=== PATIENT | female | born 1990 | race Caucasian/White ===

== ENCOUNTER 2019-07-19 13:40 | Outpatient (CLI) | payer OTHER, SELFPAY ==
[2019-07-19] VITALS (14 sets, daily range): BP systolic 117–148; BP diastolic 68–101; PULSE 66–92; RESP 18; TEMP 36.6
--- NOTE | ~2019-07-19 | US_ITS ---
EXAMINATION: US OB follow up w BPP DATE: 07/19/2019 16:28 INDICATION: -induced hypertension. TECHNIQUE: Real-time transabdominal obstetric ultrasound. FINDINGS: No prior studies for comparison. There is a single living fetus in vertex presentation. The placenta is posterior/fundal without plac enta previa. cardiac activity and movement is noted with a heart rate of 131 beats per minute. T he amniotic fluid volume is normal. KANE measures 11.1 cm. The following biometric data were obtained: BPD: 90mm corresponds to gestational age 36 weeks 2 days. Head circumference: 330mm corresponds to gestational age 37 weeks 3 days. Abdominal circumference: 326mm corresponds to gestational age 36 weeks 4 days. Femur length: 70mm corresponds to gestational age 35 weeks 6 days. Estimated weight: 2943grams +/- 442grams. BIOPHYSICAL PROFILE breathin out of 2. movement: 2 out of 2. tone: 2 out of 2. Amniotic fluid pocket: 2 out of 2. Biophysical profile score: 8 out of 8. IMPRESSION: 1. Single living intrauterine in vertex presentation with an estimated gestational age of 36 weeks 4 days by current ultrasound. 2: Biophysical profile score of 8/8. 3: Normal KANE measures 11.1 cm. Reviewed, dictated and finalized at location A. IMPRESSION: 1. Single living intrauterine in vertex presentation with an estimat ed gestational age of 36 weeks 4 days by current ultrasound. 2: Biophysical profile score of 8/8. 3: Normal KANE measures 11.1 cm.
--- NOTE | 2019-07-19 14:15 | PC.NURSE ---
Dr. Guerrero informed of pt's arrival from Dr. Mann's office due to hypertension in at [address] Guerrero is willing to accept pt. informed of the orders Dr. Mann sent with the pt and approved all orders. Pt is to call his office and schedule an appointment with him in the morning for an initial OB visit.
[2019-07-19 15:16] LABS: Basophils Percent Auto 0.2 % (0.2-1.2); Eosinophils Absolute Auto 0.1 K/mm3 (0-0.3); Eosinophils Percent Auto 0.9 % (0-4.4); Hematocrit 33.9 % (37.0-47.0); Hemoglobin 11.5 g/dL (12.0-15.0); Immature Granulocyte Absolute 0.05 K/mm3 (0.00-0.031); Immature Granulocyte Percent A 0.4 % (0-0.5); Lymphocytes Absolute Auto 2.32 K/mm3 (0.9-3.2); Lymphocytes Percent Auto 19.2 % (18.3-44.2); Mean Corpuscular HGB Conc 33.9 g/dl (32-36); Mean Corpuscular Volume 85.6 fl (80-100); Mean Platelet Volume 11.7 fl (7.4-10.4); Monocytes Absolute Auto 0.6 K/mm3 (0.1-0.6); Monocytes Percent Auto 5.3 % (2.6-8.5); Platelet Count Result 212 k/mm3 (150-375); Red Blood Count 3.96 M/mm3 (4.2-5.4); Red Cell Distribution Width 12.9 % (11.5-14.5); White Blood Count 12.1 K/mm3 (4.5-10.0)
[2019-07-19 15:21] LABS: Add Urine Microscopic? YES; Appearance Urine Clear (Clear); Bacteria Urine 2+ /hpf; Bilirubin Urine Negative (Negative); Blood Urine Negative (Negative); Color Urine Yellow (Yellow); Glucose Urine UA Negative (Negative); Ketones Urine Negative (Negative); Leukocyte Esterase Ur Negative LEU/UL (Negative); Mucus Urine Rare /lpf; Nitrate Urine Negative (Negative); Protein Urine Negative (Negative); RBC Urine 0-2 /hpf (0-2); Specific Grav Ur 1.012 (1.001-1.035); Squamous Epithelial Cell Urine Moderate /hpf (Few); Urobilinogen Urine Negative mg/dL (<2.0); WBC Urine 0-3 /hpf
[2019-07-19 15:24] LABS: Creatinine Urine 60.9 mg/dL; Total Protein Urine Random 14 mg/dL
[2019-07-19 15:28] LABS: Alanine Aminotransferase 14 U/L (4-35); Albumin Level 3.5 g/dL (3.5-5.1); Alkaline Phosphatase 111 U/L (38-126); Aspartate Amino Transferase 17 U/L (14-36); Bilirubin,Total 0.2 mg/dL (0.2-1.3); Blood Urea Nitrogen 4 mg/dL (7-17); Calcium 9.6 mg/dL (8.4-10.2); Carbon Dioxide 20 mmol/L (22-30); Chloride 108 mmol/L (98-107); Estimated Glomerular Filt Rate > 60; Glucose 101 mg/dL (65-105); Sodium 134 mmol/L (137-145); Uric Acid 5.6 mg/dL (2.5-7.5)
--- NOTE | 2019-07-19 17:10 | PC.NURSE ---
Dr. Guerrero informed of reactive NST, BP's, lab and U/S results. Informed him pt was able to schedule an appointment with him in the am. OK to discharge pt to home. Pt to complete 24 hr urine and return to OB unit.
== END 2019-07-19 17:30 | disposition home or self-care (01) ==
LOC: ANHOBOP 13:47 → ANHOBPP 13:47
PROVIDERS: Family Provider Obstetrics & Gynecology; PCP Obstetrics & Gynecology; Visit Provider Obstetrics & Gynecology
DX: O13.9 Gestational [pregnancy-induced] hypertension without significant proteinuria, unspecified trimester (principal); Z3A.36 36 weeks gestation of pregnancy
CPT/HCPCS: 36415; 59025; 76816; 76819; 80053; 81001; 82570; 84156; 84550; 85025; 99199

== ENCOUNTER 2019-07-30 14:15 | Outpatient (RCR) | payer OTHER, SELFPAY ==
[2019-07-23 14:22] VITALS: BP 139/94; PULSE 86
[2019-07-26 14:52] VITALS: BP 134/86; PULSE 65
--- NOTE | 2019-07-26 15:43 | PC.NURSE ---
BPP 10/26
--- NOTE | ~2019-07-30 | US_ITS ---
EXAMINATION: US OB BPP wo non-stress DATE: 07/23/2019 14:44 CDT INDICATION: -induced hypertension TECHNIQUE: Real-time transabdominal obstetric ultrasound. FINDINGS: No prior studies for comparison. There is a single living fetus in vertex presentation. The placenta is posterior fundal without plac enta previa. cardiac activity and movement is noted with a heart rate of 131 beats per minute. Biophysical profile: breathin of 2 movement: 2 of 2 tone: 2 of 2 Amniotic flud pocket: 2 of 2 Total score: 8 of 8 IMPRESSION: 1. Single living intrauterine in vertex presentation. 2: Total biophysical profile score of 8/8. Reviewed, dictated and finalized at location A.
--- NOTE | ~2019-07-30 | US_ITS ---
EXAMINATION: US OB BPP wo non-stress EXAM DATE: 07/26/2019 15:42 INDICATION: Hypertension. Third trimester. TECHNIQUE: Pelvic obstetrical transabdominal sonogram was performed by a technologist. There are mu ltiple grayscale and Doppler images available for interpretation. There are no earlier studies of th is gestation for comparison. FINDINGS: There is a single fetus identified in vertex presentation with a heart rate of 125 beats pe r minute. The placenta is located in the posterior fundal position. There is no sonographic evidence of retroplacental hemorrhage identified. BIOPHYSICAL PROFILE (performed by the technologist) breathing (30 sec sustained breathing in 30 minutes): 2 out of 2 movement (3 gross body movements in 30 minutes): 2 out of 2 tone (one episode of tyukdts-dghjosldo-vbeebsi limb movement): 2 out of 2 Amniotic fluid pocket (2 cm): 2 out of 2 Total score: 8 out of 8 IMPRESSION: 1. Single fetus with heart rate of 125 bpm. 2. Normal biophysical profile score of 8 out of 8. Reviewed, dictated and finalized at location G.
--- NOTE | ~2019-07-30 | US_ITS ---
EXAMINATION: US OB BPP wo non-stress EXAM DATE: 07/30/2019 15:18 INDICATION: Gestational hypertension. Third trimester. TECHNIQUE: Pelvic obstetrical transabdominal sonogram was performed by a technologist. There are mu ltiple grayscale and Doppler images available for interpretation. Comparison is made to prior examina tion from 07/23/2019. FINDINGS: There is a single fetus identified in vertex presentation with a heart rate of 131 beats p er minute. The placenta is located in the fundal position. There is no sonographic evidence of retro placental hemorrhage identified. BIOPHYSICAL PROFILE (performed by the technologist) breathing (30 sec sustained breathing in 30 minutes): 2 out of 2 movement (3 gross body movements in 30 minutes): 2 out of 2 tone (one episode of ghhrjhx-hamnchdtq-avweewr limb movement): 2 out of 2 Amniotic fluid pocket (2 cm): 2 out of 2 Total score: 8 out of 8 IMPRESSION: 1. Single fetus with heart rate of 131 bpm. 2. Normal biophysical profile score of 8 out of 8. Reviewed, dictated and finalized at location A.
[2019-07-30 14:56] VITALS: BP 139/92; PULSE 85
--- NOTE | 2019-07-30 15:29 | PC.NURSE ---
BPP 10/26
== END 2019-08-01 09:46 | disposition home or self-care (01) ==
LOC: ANHOBOP 14:15
PROVIDERS: PCP Obstetrics & Gynecology; Visit Provider Obstetrics & Gynecology
DX: O13.3 Gestational [pregnancy-induced] hypertension without significant proteinuria, third trimester (principal); Z3A.36 36 weeks gestation of pregnancy; Z3A.37 37 weeks gestation of pregnancy
CPT/HCPCS: 59025; 76819

== ENCOUNTER 2019-07-31 17:54 | Inpatient (IN) | payer OTHER, SELFPAY ==
[2019-07-31] VITALS (24 sets, daily range): BP systolic 128–166; BP diastolic 76–105; PULSE 63–91; TEMP 37.2–37.3; BMI 36.8
--- NOTE | 2019-07-31 18:39 | LDADM ---
This patient, Philly Bowie, was admitted to Labor/Delivery/Recovery 107 on 07/31/19 at 17:54. Plans for labor, pain management and were discussed with patient. Patient/family oriented to hospital policies and general routines including ID bracelet, bed and alarms, visiting hours, pain management, procedures, bathroom and other care routines, personal items, smoking policy, room service/diet and guest tray routines, security routines, and visiting hours. Patient/Family are encouraged to report perceived risks to care and to ask questions if they do not understand what they are told or what they should do. See OBIX for further documentation.
[2019-07-31 19:23] LABS: Basophils Percent Auto 0.2 % (0.2-1.2); Eosinophils Absolute Auto 0.2 K/mm3 (0-0.3); Eosinophils Percent Auto 1.5 % (0-4.4); Hematocrit 32.8 % (37.0-47.0); Hemoglobin 10.9 g/dL (12.0-15.0); Immature Granulocyte Absolute 0.07 K/mm3 (0.00-0.031); Immature Granulocyte Percent A 0.6 % (0-0.5); Lymphocytes Absolute Auto 2.96 K/mm3 (0.9-3.2); Mean Corpuscular HGB Conc 33.2 g/dl (32-36); Mean Corpuscular Hemoglobin 28.1 pg (26-34); Mean Corpuscular Volume 84.5 fl (80-100); Mean Platelet Volume 12.2 fl (7.4-10.4); Monocytes Absolute Auto 0.9 K/mm3 (0.1-0.6); Neutrophils Absolute Auto 8.2 K/mm3 (1.3-6.7); Neutrophils Percent Auto 66.7 % (45.5-73.1); Platelet Count Result 192 k/mm3 (150-375); Red Blood Count 3.88 M/mm3 (4.2-5.4); Red Cell Distribution Width 13.5 % (11.5-14.5); White Blood Count 12.3 K/mm3 (4.5-10.0)
[2019-07-31 19:36] LABS: Alanine Aminotransferase 10 U/L (4-35); Albumin Level 3.4 g/dL (3.5-5.1); Alkaline Phosphatase 113 U/L (38-126); Aspartate Amino Transferase 16 U/L (14-36); Bilirubin,Total < 0.1 mg/dL (0.2-1.3); Blood Urea Nitrogen 9 mg/dL (7-17); Carbon Dioxide 21 mmol/L (22-30); Chloride 108 mmol/L (98-107); Estimated CRCL calculation 208 ml/min; Estimated Glomerular Filt Rate > 60; Glucose 82 mg/dL (65-105); Sodium 134 mmol/L (137-145); Uric Acid 5.6 mg/dL (2.5-7.5)
[2019-07-31] MEDS: OXYTOCIN 30 UNITS/NS 500 ML 30 UNITS/500 ML BAG IV CONT (19:38)
[2019-07-31] MEDS: LACTATED RINGERS 1,000 ML 125 ML IV CONT (19:39)
[2019-07-31] MEDS: LABETALOL HCL INJ 100 MG/20 ML VIAL 20 MG IV PUSH (22:20)
[2019-08-01] VITALS (226 sets, daily range): BP systolic 108–166; BP diastolic 59–119; PULSE 58–105; TEMP 36.9–37.9; O2SAT 97–100
[2019-08-01] MEDS: ACETAMINOPHEN 325 MG TABLET 650 MG PO (00:54)
[2019-08-01 06:59] LABS: Rapid Plasma Reagin Non-Reactive (NonReactive)
[2019-08-01] MEDS: AMPICILLIN 2 GM/NS 100 ML 2 GM/100 ML BAG IVPB (07:51)
[2019-08-01] MEDS: LACTATED RINGERS 1,000 ML 125 ML IV CONT ×4 (09:55→23:55)
[2019-08-01 10:40] LABS: Amphetamine Screen Urine Negative (Negative); Barbiturate Screen Urine Negative (Negative); Benzodiazepines Screen Urine Negative (Negative); Cannabinoid Screen Urine Negative (Negative); Cocaine Screen Urine Negative (Negative); Methadone Screen Urine Negative (Negative); Opiate Screen Urine Negative (Negative); Phencyclidine Screen Urine Negative (Negative)
[2019-08-01] MEDS: AMPICILLIN 1 GM/NS 50 ML 1 GM/50 ML BAG IVPB ×3 (13:10→20:57)
[2019-08-01] MEDS: OXYTOCIN 30 UNITS/NS 500 ML 30 UNITS/500 ML BAG IV CONT (13:17)
[2019-08-01] MEDS: ACETAMINOPHEN 325 MG TABLET 650 MG (13:28)
--- NOTE | 2019-08-01 15:44 | WPDANESEPP ---
Anes - Eval Pre Procedure Procedure: Labor Epidural Date/Time: 08/01/19 15:44 Surgeon: Cesar Preop Diagnosis: Labor Pain Pre Op Diagnosis: Induction of Labor Patient Data Age: 29 Gender: F Height: 5 ft 7 in Weight: 106.75 kg Last Vital Signs Temp 37.3 C 08/01/19 15:19 Pulse 67 08/01/19 15:41 BP 138/87 08/01/19 15:41 Pulse Ox 99 08/01/19 15:40 Allergies Allergy/AdvReac Type Severity Reaction Status Date / Time No Known Allergies Allergy Verified 07/31/19 20:48 Home Medications Medication Instructions Recorded Confirmed Type Calcium with Vitamin D 600 cap PO DAILY 07/31/19 08/01/19 History aspirin 81 mg/day PO DAILY 07/31/19 08/01/19 History folic acid 1 mg PO DAILY 07/31/19 08/01/19 History vit-iron fum-folic ac 1 tablet PO DAILY 07/31/19 08/01/19 History [ Vitamin] progesterone 200 mg BID 07/31/19 08/01/19 History Laboratory Tests 07/31/19 07/31/19 07/31/19 19:16 19:16 19:16 WBC 12.3 K/mm3 H K/mm3 (4.5-10.0) RBC 3.88 M/mm3 L M/mm3 (4.2-5.4) Hgb 10.9 g/dL L g/dL (12.0-15.0) Hct 32.8 % L % (37.0-47.0) MCV 84.5 fl fl (80-100) MCH 28.1 pg pg (26-34) MCHC 33.2 g/dl g/dl (32-36) RDW 13.5 % % (11.5-14.5) Plt Count 192 k/mm3 k/mm3 (150-375) MPV 12.2 fl H fl (7.4-10.4) Immature Gran % (Auto) 0.6 % H % (0-0.5) Neut % (Auto) 66.7 % % (45.5-73.1) Lymph % (Auto) 24.0 % % (18.3-44.2) [place] % (Auto) 7.0 % % (2.6-8.5) Eos % (Auto) 1.5 % % (0-4.4) Baso % (Auto) 0.2 % % (0.2-1.2) Lymph # (Auto) 2.96 K/mm3 K/mm3 (0.9-3.2) [place] # (Auto) 0.9 K/mm3 H K/mm3 (0.1-0.6) Eos # (Auto) 0.2 K/mm3 K/mm3 (0-0.3) Baso # (Auto) 0.0 K/mm3 K/mm3 (0.0-0.1) Abs Immat Gran (auto) 0.07 K/mm3 H K/mm3 (0.00-0.031) Absolute Neuts (auto) 8.2 K/mm3 H K/mm3 (1.3-6.7) Absolute Nucleated RBC 0.0 K/mm3 K/mm3 (0.0-0.012) Nucleated RBC % 0.0 % % (0.0-0.2) Sodium Potassium Chloride Carbon Dioxide BUN Creatinine Estim Creat Clear Calc Estimated GFR Glucose Uric Acid 5.6 mg/dL mg/dL (2.5-7.5) Calcium Total Bilirubin AST ALT Alkaline Phosphatase Total Protein Albumin Urine Opiates Screen Urine Methadone Screen Ur Barbiturates Screen Ur Phencyclidine Scrn Ur Amphetamine Screen U Benzodiazepines Scrn Urine Cocaine Screen U Cannabinoids Screen RPR Non-reactive (NonReactive) Blood Type Antibody Screen 07/31/19 07/31/19 08/01/19 19:16 19:16 10:07 WBC RBC Hgb Hct MCV MCH MCHC RDW Plt Count MPV Immature Gran % (Auto) Neut % (Auto) Lymph % (Auto) [place] % (Auto) Eos % (Auto) Baso % (Auto) Lymph # (Auto) [place] # (Auto) Eos # (Auto) Baso # (Auto) Abs Immat Gran (auto) Absolute Neuts (auto) Absolute Nucleated RBC Nucleated RBC % Sodium 134 mmol/L L mmol/L (137-145) Potassium 4.0 mmol/L mmol/L (3.4-5.0) Chloride 108 mmol/L H mmol/L (98-107) Carbon Dioxide 21 mmol/L L mmol/L (22-30) BUN 9 mg/dL D mg/dL (7-17) Creatinine 0.40 mg/dL L mg/dL (0.7-1.0) Estim Creat Clear Calc 208 ml/min ml/min Estimated GFR > 60 (59 - ) Glu
[2019-08-01] MEDS: OXYTOCIN 30 UNITS/NS 500 ML 30 UNITS/500 ML BAG 20 UNITS IV CONT (21:35)
[2019-08-02] VITALS (105 sets, daily range): BP systolic 111–177; BP diastolic 64–99; PULSE 68–102; RESP 13–18; TEMP 37.1–37.7; O2SAT 96–100
[2019-08-02] MEDS: AMPICILLIN 1 GM/NS 50 ML 1 GM/50 ML BAG IVPB (01:12)
[2019-08-02] MEDS: LABETALOL HCL INJ 100 MG/20 ML VIAL 20 MG IV PUSH (04:07)
--- NOTE | 2019-08-02 05:15 | PM.OBPRVD ---
OB - Delivery Note Procedure events: Induced HTN Intrapartal events: Prolonged Labor > 20 hours Route of delivery: Laceration description: Superficial Delivery repair: chromic Specimen: Yes Estimated blood loss (mL): 300 Anesthesia type: Epidural Disposition: floor Narrative: Patient prepped and draped usual sterile manner for this procedure. Maternal expulsive efforts delivered vertex. Right (anterior ) shoulder delivered with the Gamal maneuver and the rest of baby was delivered. Cord was clamped and cut and baby passed off the operative field. Placenta delivered spontaneously and the uterus was well contracted. Small laceration noted on the left vaginal wall was closed with a fbnwca-se-jmjfe of 0 chromic suture. This point seizure was considered terminated with uterus well contracted no significant bleeding and mother baby both doing Well. [place] Baby Weeks of gestation at delivery: 38 Infant gender: Female Weight (pounds): 8 Weight (ounces): 9 score one minute: 8 score five minutes: 8
[2019-08-02] MEDS: OXYTOCIN 30 UNITS/NS 500 ML 30 UNITS/500 ML BAG 20 UNITS IV CONT (05:27)
[2019-08-02] MEDS: WITCH HAZEL 40 PADS 1 PAD TOPICAL (06:47)
[2019-08-02] MEDS: BENZOCAINE 20% AER SPR (*SP) 56 GM CAN 1 SPRAY TOPICAL (06:47)
--- NOTE | 2019-08-02 08:45 | PC.NURSE ---
Consulted with patient, mother reports attempts, has not fed since . Reviewed feeding cues, frequencies, duration of feedings, feeding elimination flow sheet, and signs of adequate intake. Demonstrated stimulation techniques to wake infant for feeding. Assisted with infant to breast. Reviewed positioning/alignment in cross cradle, holding breast in C hold and guided asymmetrical latch on. Infant was sleepy and several attempts made before was able to latch correctly. nursed sleepily, short bursts of suckling noted. Advised to stimulate to keep infant awake and nursing. Reviewed signs of a correct latch, effective nursing and suck swallow ratio. was[able/unable] to maintain latch without discomfort to mother. Nipple care reviewed. Instructed mother to call out for RN assistance if she is unable to latch infant for feeding or she has discomfort with nursing. Instructed feeding should be initiated three hours from start of last feeding or if feeding cues are noted before. Mother voiced understanding of information shared.
[2019-08-02] MEDS: DOCUSATE SODIUM 100 MG CAPSULE PO (09:39)
[2019-08-02] MEDS: MULTIVIT/MIN/PREN/FOL AC/IRON TABLET 1 TAB PO (09:39)
[2019-08-02] MEDS: LABETALOL HCL 100 MG TABLET PO ×2 (09:39→21:49)
--- NOTE | 2019-08-02 11:40 | PC.NURSE ---
Mother called out for assist with feeding. Mother reports infant did not feed long after LC left room. Reviewed feeding cues, frequencies, duration of feedings, feeding elimination flow sheet, and signs of adequate intake. Demonstrated stimulation techniques to wake infant for feeding. Assisted with infant to breast. Reviewed positioning/alignment in cross cradle, holding breast in C hold and guided asymmetrical latch on. was sleepy and several attempts made before infant was able to latch correctly. nursed sleepily, short bursts of suckling noted. Advised to stimulate to keep awake and nursing. Reviewed signs of a correct latch, effective nursing and suck swallow ratio. was[able/unable] to maintain latch without discomfort to mother. Nipple care reviewed. Instructed mother to call out for RN assistance if she is unable to latch for feeding or she has discomfort with nursing. Instructed feeding should be initiated three hours from start of last feeding or if feeding cues are noted before. Mother voiced understanding of information shared.
--- NOTE | 2019-08-02 14:50 | PC.NURSE ---
Breast pump provided due to ineffective feeding. Instructions given on breast pump care and usage, pumping schedule, nipple care, and collection and storage of breast milk. Encouraged lkxf-lx-oeyq, breast massage and manual expression to stimulate supply. Assessed patient for correct flange size, placement and draw. Patient verbalizes and demonstrates understanding of instructions.
[2019-08-03 05:25] LABS: Hematocrit 28.1 % (37.0-47.0); Hemoglobin 9.3 g/dL (12.0-15.0)
[2019-08-03] MEDS: DOCUSATE SODIUM 100 MG CAPSULE PO ×2 (08:30→16:43)
[2019-08-03] MEDS: MULTIVIT/MIN/PREN/FOL AC/IRON TABLET 1 TAB PO (08:30)
[2019-08-03] MEDS: POLYSACCHARIDE IRON COMPLEX 150 MG CAPSULE PO ×2 (08:30→16:43)
[2019-08-03 08:31] VITALS: PULSE 88
[2019-08-03] MEDS: LABETALOL HCL 100 MG TABLET PO ×2 (08:31→20:53)
[2019-08-03] MEDS: WITCH HAZEL 40 PADS 1 PAD TOPICAL (08:31)
[2019-08-03] MEDS: BENZOCAINE 20% AER SPR (*SP) 56 GM CAN 1 SPRAY TOPICAL (08:31)
[2019-08-03 08:35] VITALS: BP 143/89; PULSE 60; RESP 18; TEMP 37.4; O2SAT 99
--- NOTE | 2019-08-03 11:57 | P.PNOB_ITS ---
OB - PN: Subj Subjective Date/time seen: 08/03/19 11:57 Interval history: 29yo s/p complicated by shoulder dystocia on 08/01. Gestational HTN. Denies headaches, blurry vision. Doing well. Lochia decreasing. Pain well controlled. Tolerating diet. Ambulating. Patient comments: no complaints and pain well controlled [place] baby status: doing well OB - PN: Obj Data Labs CBC & Chem 7: 08/03/19 05:01 07/31/19 19:16 Labs: Laboratory Results - last 24 hr 08/03/19 05:01 Hgb 9.3 L Hct 28.1 L OB - PN A/P Assessment and Plan (1) (normal spontaneous vaginal delivery): Code(s): O80 - Encounter for full-term uncomplicated delivery Status: Acute Assessment and Plan: Routine care Pain management Ambulate DC tomorrow (2) Gestational HTN: Code(s): O13.9 - Gestational [-induced] hypertension without significant proteinuria, unspecified trimester Status: Acute Time Spent With Patient Time: Total time spent is greater than 50% in coordination of care (as documented) at patient's floor/unit and/or counseling patient: Review of Systems Constitutional: Constitutional: Reports no additional constitutional complaints Cardiovascular: Cardiovascular: Reports no additional cardiovascular complaints Respiratory: Respiratory: Reports no additional respiratory complaints Gastrointestinal: Gastrointestinal: Reports no additional gastrointestinal complaints Genitourinary: Genitourinary: Reports no additional female genitourinary complaints Exam Const: General: comfortable, no acute distress, alert and awake Orientation/consciousness: patient oriented x3 Resp: Effort & Inspection: normal respiratory effort Cardio: Rate: regular rate GI: Other: soft, nondistended, nontender. Fundus firm Psych: Appearance: grossly normal Mental Status: mental status grossly normal Affect: normal affect Attitude: cooperative Judgement: Good judgement present (Psych)
[2019-08-03 20:50] VITALS: BP 149/86; PULSE 60; RESP 18; TEMP 36.8; O2SAT 100
--- NOTE | 2019-08-03 20:50 | PC.NURSE ---
Patient viewed the discharge video Mother & Baby Care, The First Two Weeks . Patient was given the opportunity and encouraged to ask questions. Patient verbalized understanding of information shared and has been given the mother/baby guide for home reference.
[2019-08-03 20:53] VITALS: PULSE 60
--- NOTE | 2019-08-04 08:00 | PC.NURSE ---
PT introductions made and plan of care discussed per post , pain management, breast feeding, daily care activities and pending discharge to home. PT Verbalized understanding of such care.
[2019-08-04] MEDS: DOCUSATE SODIUM 100 MG CAPSULE PO (10:01)
[2019-08-04 10:02] VITALS: PULSE 80
[2019-08-04] MEDS: LABETALOL HCL 100 MG TABLET PO (10:02)
[2019-08-04] MEDS: POLYSACCHARIDE IRON COMPLEX 150 MG CAPSULE PO (10:02)
[2019-08-04] MEDS: IBUPROFEN 600 MG TABLET PO (10:03)
[2019-08-04] MEDS: LANOLIN (LANSINOH) 7.5 GM CREAM 1 APPLIC TOPICAL (10:04)
[2019-08-04] MEDS: MULTIVIT/MIN/PREN/FOL AC/IRON TABLET 1 TAB PO (10:06)
[2019-08-04 11:00] VITALS: BP 145/71; PULSE 64; PULSE 80; RESP 18; TEMP 37.5
--- NOTE | 2019-08-04 12:45 | PC.NURSE ---
PT received discharge instructions per protocol and verbalized understanding of such instructions.
--- NOTE | 2019-08-04 13:20 | PC.NURSE ---
Pt discharged to home ambulatory accompanied by spouse and to waiting car. Follow up appts confirmed
--- NOTE | 2019-08-22 12:54 | PM.OBDSVD ---
DS: Admitting Diagnosis Admitting Diagnosis Admitting Diagnosis: Encounter for supervision of normal , unspecified, third trimester OB - DS: Summary OB Procedures : None OB Procedures Intrapartum: Spontaneous Vag Delivery OB Procedures: : None Time Spent with Patient Time attestation: Total time spent providing and/or coordinating discharge services: DS: Data Data Completed and Pending Completed studies during hospitalization: Pending at discharge 08/02/19 05:04 Surgical [PTH] Routine Discharge Plan Discharge Attending physician on discharge: Carlos Guerrero Discharging Clinician: Jorge Best Patient Disposition: Home, Self-Care Activity: as tolerated Diet: regular Discharge Instructions: Education: Mom and Baby Guide Given to: Mother Follow-Up: Call your delivering provider's office for an appointment to be seen in: 3 weeks Mom and baby should come to the [facility] for the follow-up appointment. Appointment Date/Time: August 06, 2019 at 11:00 am What to expect at your follow-up visit: Blood Pressure Check Call [phone] if you are unable to keep your appointment time. BREAST CARE: 1. Wear a snug supportive bra. 2. For engorgement discomfort: Breast Feeding: A. Apply warm moist washcloths B. Express milk as needed to relieve engorgement C. Wear loose clothing Bottle Feeding: A. May apply ice packs 3. For sore nipples: A. Identify correct latch-on B. Apply warm moist washcloths before and after nursing C. Air dry nipples after nursing D. May apply Lansinoh cream to nipples /PERINEAL CARE: 1. Until bleeding stops, use your rosibel bottle after urinating 2. Change your pad frequently throughout the day 3. You may take sitz baths several times a day (fill your bathtub with warm water and soak for 20 minutes.) Do NOT bathe in the water 4. No tub baths until seen by your physician - You may shower ACTIVITY: 1. Rest as much as possible. 2. Do not exercise or lift anything heavier than your baby (such as laundry or other children.) 3. Avoid stairs or driving as much as possible. 4. Do not put anything into the vagina. No douching, tampons, or sexual activity until seen by physician. NOTIFY PHYSICIAN IF YOU HAVE ANY QUESTIONS OR IF ANY OF THE FOLLOWING SYMPTOMS OCCUR: 1. If your perineum becomes red, swollen, or more painful than what you have experienced in the hospital. 2. If your vaginal bleeding becomes foul smelling. 3. If your vaginal bleeding becomes more heavy than a period or if your bleeding changes from pink to bright red. However, you may pass an occasional walnut-sized clot once or twice for the first week . 4. If you experience a sharp, shooting pain in you calves. 5. If you discover a hard, reddened area on your breast or if you experience flu-like symptoms. 6. Call for temp 100.4 or greater DIET: 1. Eat regular, well-balanced meals. 2. Drink plenty of fluids daily. If , drink to thirst. Patient Instructions: Antibiotic Form Stand Alone Forms: General Discharge Information Follow-up/Referrals: Carlos Guerrero MD [Physician] - Discharge Medications: New docusate sodium 100 mg Capsule 100 mg PO BID PRN (Reason: Constipation) Qty: 60 RF: 0 ibuprofen 600 mg Tablet 600 mg PO Q6H PRN (Reason: Cramping) Qty: 90 RF: 0 labetalol 100 mg Tablet 100 mg PO Q12HR Qty: 60 RF: 1 Continued Vitamin 27 mg iron- 0.8 mg tablet 1 tablet PO DAILY RF: 0 Calcium with Vitamin D 600 cap PO DAILY RF: 0 Discontinued folic acid 1 mg tablet 1 mg PO DAILY RF: 0 progesterone 200 mg BID RF: 0 aspirin tablet 81 mg/day PO DAILY RF: 0 Date of admission: 07/31/19 17:54 Primary Care Provider: Alan Mann Admitting Provider: Carlos Guerrero
== END 2019-08-04 13:20 | disposition home or self-care (01) | DRG 560 ==
LOC: ANHOB2 08-04 07:26 → ANHLDR 08-07 08:11 → ANHOB2 08-07 08:11
PROVIDERS: Admitting Provider Obstetrics & Gynecology; PCP Obstetrics & Gynecology; Visit Provider Obstetrics & Gynecology
DX: O13.4 Gestational [pregnancy-induced] hypertension without significant proteinuria, complicating childbirth (principal); Z3A.38 38 weeks gestation of pregnancy; Z37.0 Single live birth; O99.820 Streptococcus B carrier state complicating pregnancy; O36.8330 Maternal care for abnormalities of the fetal heart rate or rhythm, third trimester, not applicable or unspecified; O71.4 Obstetric high vaginal laceration alone
CPT/HCPCS: 36415; 80053; 80307; 84550; 85014; 85018; 85025; 86592; 86850; 86900; 86901; 88307; A9270; J0131; J0290; J2590; J2795; J3010; J7120

== ENCOUNTER 2023-05-16 09:40 | Emergency (ER) | payer OTHER, SELFPAY ==
[2023-05-16] VITALS (22 sets, daily range): BP systolic 132–183; BP diastolic 86–119; PULSE 61–89; RESP 15–22; TEMP 36.6–36.7; O2SAT 97–100
--- NOTE | 2023-05-16 10:11 | ECG_ITS ---
Measurements Intervals [place] Rate: 54 P: 29 MS: 119 QRS: 30 QRSD: 81 T: 26 QT: 383 QTc: 364 Interpretive Statements SINUS BRADYCARDIA WITH SHORT MS INTERVAL NORMAL ELECTROCARDIOGRAM NO PREVIOUS ECG AVAILABLE FOR COMPARISON Electronically Signed On 05-16-2023 18:23:14 [employer] by Jitendra Hernandez M.D.
[2023-05-16 10:37] LABS: Basophils Percent Auto 0.4 % (0.2-1.2); Eosinophils Absolute Auto 0.1 K/mm3 (0-0.3); Eosinophils Percent Auto 1.3 % (0-4.4); Hematocrit 41.3 % (37.0-47.0); Hemoglobin 13.5 g/dL (12.0-15.0); Immature Granulocyte Absolute 0.03 K/mm3 (0.00-0.031); Immature Granulocyte Percent A 0.3 % (0-0.5); Lymphocytes Absolute Auto 3.18 K/mm3 (0.9-3.2); Lymphocytes Percent Auto 31.7 % (18.3-44.2); Mean Corpuscular HGB Conc 32.7 g/dl (32-36); Mean Corpuscular Hemoglobin 27.4 pg (26-34); Mean Corpuscular Volume 83.8 fl (80-100); Mean Platelet Volume 9.7 fl (7.4-10.4); Monocytes Absolute Auto 0.5 K/mm3 (0.1-0.6); Monocytes Percent Auto 4.8 % (2.6-8.5); Neutrophils Absolute Auto 6.2 K/mm3 (1.3-6.7); Neutrophils Percent Auto 61.5 % (45.5-73.1); Platelet Count Result 343 k/mm3 (150-375); Red Blood Count 4.93 M/mm3 (4.2-5.4); Red Cell Distribution Width 12.9 % (11.5-14.5)
[2023-05-16 10:47] LABS: Alanine Aminotransferase 17 U/L (6-35); Albumin Level 4.5 g/dL (3.5-5.1); Alkaline Phosphatase 73 U/L (38-126); Anion Gap 8 mmol/L (8-16); Aspartate Amino Transferase 20 U/L (14-36); Bilirubin,Total 0.4 mg/dL (0.2-1.3); Blood Urea Nitrogen 4 mg/dL (7-17); Carbon Dioxide 24 mmol/L (22-30); Chloride 106 mmol/L (98-107); Estimated CRCL calculation 158 ml/min; Estimated Glomerular Filt Rate > 60; Glucose 92 mg/dL (65-110); Magnesium 2.2 mg/dL (1.6-2.3); Potassium 3.6 mmol/L (3.4-5.0); Sodium 138 mmol/L (137-145)
[2023-05-16 11:45] LABS: Appearance Urine Clear (Clear); Bacteria Urine None Seen /hpf; Bilirubin Urine Negative (Negative); Blood Urine Trace (Negative); Color Urine Yellow (Yellow); Glucose Urine UA Negative (Negative); Ketones Urine Negative (Negative); Leukocyte Esterase Ur Negative LEU/UL (Negative); Need Manual Microscopic Reviewed; Nitrate Urine Negative (Negative); Non Pathogenic Casts 0-2; Protein Urine Negative (Negative); RBC Urine 0-2 /hpf (0-2); Specific Grav Ur 1.002 (1.001-1.035); Squamous Epithelial Cell Urine None seen /hpf (Few); Urobilinogen Urine 0.2 mg/dL (<2.0); WBC Urine 0-5 /hpf
[2023-05-16 11:47] LABS: Add Urine Microscopic? YES
[2023-05-16] MEDS: ACETAMINOPHEN 500 MG TABLET 1000 MG PO (12:48)
[2023-05-16] MEDS: LABETALOL HCL 100 MG TABLET PO (12:48)
--- NOTE | 2023-05-16 12:55 | ED.GENADULT ---
HPI - General Adult General Chief complaint: Recheck/Abnormal Lab/Rx Stated complaint: HTN 6 weeks Time Seen by Provider: 05/16/23 10:09 History of Present Illness HPI narrative: 33-year-old female presenting to the emergency department for evaluation hypertension. Patient does have a known history of hypertension but with her recent discovery of a she stop taking her lisinopril. Patient reports that her blood pressure has been increased over the last few days and patient has been symptomatic with a headache and intermittent dizziness. Upon arrival emergency department patient's blood pressure was 180/120. With rest the patient's blood pressure did improve to 140/80. Patient does have prior history of preeclampsia with her 1st and patient was treated with 100 mg labetalol b.i.d.. Patient is scheduled to have follow-up with Dr. Guerrero for this and when she called their office she was recommended to present to the emergency department due to her symptomatic hypertension. Related Data Home Medications Medication Instructions Recorded Confirmed Calcium with Vitamin D 600 cap PO DAILY 07/31/19 08/01/19 vitamins-iron fumarate 27 1 tablet PO DAILY 07/31/19 08/01/19 mg iron-folic acid 0.8 mg tablet ( Vitamin) Allergies Allergy/AdvReac Type Severity Reaction Status Date / Time No Known Allergies Allergy Verified 07/31/19 20:48 Review of Systems Review of Systems: All systems reviewed & are unremarkable except as noted in HPI and below PMFSH Family History Family History Mother Pre-eclampsia Social History Social History Years smoked: 10 Smoking status: Former smoker Second hand tobacco smoke exposure: No Substance use: former Gender identity (if verbalized by the patient): Female Spiritual care concerns: No Exam Narrative: APPEARANCE: Well appearing, no pain, no distress, well-nourished. HEAD: normocephalic, atraumatic. EYES: PERRLA/EOMI, conjunctivae clear. NOSE: Normal no drainage EARS:TMS clear with good light reflex. THROAT: Pharynx clear, no exudate. NECK: Supple. No adenopathy, no masses. RESPIRATORY: Airway patent, respirations nonlabored. Clear to auscultation bilaterally, no rales, rhonchi, wheezing. CARDIOVASCULAR: Regular rate and rhythm without murmurs rubs or gallops. ABDOMINAL: Soft, nontender, nondistended, normal bowel sounds MUSCULOSKELETAL: Moves all extremities. Strength/ROM intact, No edema, No calf tenderness. NEURO: Alert. Cranial nerves II through XII intact. Grossly intact SKIN: Warm, dry. Normal Color Course Course Emergency Course: Patient was started on labetalol for hypertension with . Blood pressure was improved and patient was comfortable with plan for close follow Vital Signs Vital signs: Vital Signs Temperature 97.8 F 05/16/23 09:50 Pulse Rate 80 05/16/23 09:50 Respiratory Rate 16 05/16/23 09:50 Blood Pressure 183/119 H 05/16/23 09:50 Pulse Oximetry 100 05/16/23 09:50 Temperature 98.0 F 05/16/23 14:58 Pulse Rate 77 05/16/23 14:58 Respiratory Rate 20 05/16/23 14:58 Blood Pressure 134/87 05/16/23 14:58 Pulse Oximetry 100 05/16/23 14:58 Medical Decision Making MDM Narrative Medical decision making narrative: 33-year-old female approximately 7 weeks presented to emergency department for evaluation of hypertension. Patient's blood pressure did improve down to 140 systolic with rest. Patient was treated with 100 mg of p.o. labetalol. Patient is afebrile with no leukocytosis and a stable hemoglobin of 13.5 no abnormalities on the patient's CMP and patient's creatinine is at its baseline of 0.5 patient's urinary analysis patient has no proteinuria. EKG shows sinus rhythm. Case was discussed with Dr. Chadwick on-call for her OB Gyne,
[2023-05-16 14:59] LABS: Thyroid Stimulating Hormone Reflex 0.594 uIU/mL (0.465-4.68)
== END 2023-05-16 15:00 | disposition home or self-care (01) ==
PROVIDERS: Emergency Provider Emergency Medicine; PCP Family Medicine
DX: O10.911 Unspecified pre-existing hypertension complicating pregnancy, first trimester (principal); O09.521 Supervision of elderly multigravida, first trimester; O99.891 Other specified diseases and conditions complicating pregnancy; R00.1 Bradycardia, unspecified; Z3A.01 Less than 8 weeks gestation of pregnancy; Z87.891 Personal history of nicotine dependence; T46.4X6A Underdosing of angiotensin-converting-enzyme inhibitors, initial encounter; Z91.128 Patient's intentional underdosing of medication regimen for other reason
CPT/HCPCS: 36415; 80053; 81001; 81025; 83735; 84443; 85025; 93005; 99283; A9270

== ENCOUNTER 2023-06-14 11:23 | Outpatient (CLI) | payer OTHER, SELFPAY ==
[2023-06-14 12:51] LABS: Basophils Percent Auto 0.3 % (0.2-1.2); Eosinophils Absolute Auto 0.3 K/mm3 (0-0.3); Eosinophils Percent Auto 2.6 % (0-4.4); Hematocrit 40.8 % (37.0-47.0); Hemoglobin 13.1 g/dL (12.0-15.0); Immature Granulocyte Absolute 0.03 K/mm3 (0.00-0.031); Immature Granulocyte Percent A 0.3 % (0-0.5); Lymphocytes Absolute Auto 2.57 K/mm3 (0.9-3.2); Lymphocytes Percent Auto 21.5 % (18.3-44.2); Mean Corpuscular HGB Conc 32.1 g/dl (32-36); Mean Corpuscular Hemoglobin 27.2 pg (26-34); Mean Corpuscular Volume 84.8 fl (80-100); Mean Platelet Volume 10.4 fl (7.4-10.4); Monocytes Absolute Auto 0.4 K/mm3 (0.1-0.6); Monocytes Percent Auto 3.3 % (2.6-8.5); Neutrophils Absolute Auto 8.7 K/mm3 (1.3-6.7); Platelet Count Result 293 k/mm3 (150-375); Red Blood Count 4.81 M/mm3 (4.2-5.4); Red Cell Distribution Width 13.1 % (11.5-14.5)
[2023-06-14 13:10] LABS: Alanine Aminotransferase 18 U/L (6-35); Albumin Level 4.2 g/dL (3.5-5.1); Alkaline Phosphatase 65 U/L (38-126); Anion Gap 9 mmol/L (4-12); Aspartate Amino Transferase 16 U/L (14-36); Bilirubin,Total 0.3 mg/dL (0.2-1.3); Blood Urea Nitrogen 4 mg/dL (7-17); Calcium 9.6 mg/dL (8.4-10.2); Carbon Dioxide 19 mmol/L (22-30); Chloride 105 mmol/L (98-107); Estimated Glomerular Filt Rate > 60; Glucose 177 mg/dL (65-110); Glucose 1 Hour PP 50gm Dose 177 mg/dL; Potassium 3.5 mmol/L (3.4-5.0); Sodium 133 mmol/L (137-145)
[2023-06-14 13:51] LABS: Rubella IgG Antibody 68.1 IU/ML
[2023-06-14 13:52] LABS: HIV 1/2 Ab P24 Ag Result Negative (Negative)
[2023-06-14 13:57] LABS: Hepatitis B Surface Antigen Negative (Negative)
[2023-06-14 15:30] LABS: Rapid Plasma Reagin Non-Reactive (NonReactive)
[2023-06-16 09:01] LABS: CMV IgG Antibody <0.60 U/mL (<0.60)
== END 2023-06-14 11:24 | disposition home or self-care (01) ==
LOC: ANHLAB 11:24
PROVIDERS: PCP Family Medicine; Visit Provider Obstetrics & Gynecology
DX: N91.2 Amenorrhea, unspecified (principal)
CPT/HCPCS: 36415; 80053; 82947; 85025; 86592; 86644; 86703; 86747; 86762; 86787; 86850; 86900; 86901; 87086; 87088; 87340; G0432

== ENCOUNTER 2023-12-10 09:18 | Outpatient (RCR) | payer OTHER, SELFPAY ==
[2023-12-10 10:02] VITALS: BP 125/75; PULSE 81
== END 2024-01-23 09:46 | disposition home or self-care (01) ==
LOC: ANHOBOP 09:18
PROVIDERS: Visit Provider Obstetrics & Gynecology
DX: O13.9 Gestational [pregnancy-induced] hypertension without significant proteinuria, unspecified trimester (principal)
CPT/HCPCS: 59025

== ENCOUNTER 2023-12-28 16:54 | Inpatient (IN) | payer OTHER, SELFPAY ==
[2023-12-28] VITALS (62 sets, daily range): BP systolic 96–150; BP diastolic 53–95; PULSE 60–86; TEMP 36.4–36.6; O2SAT 95–99; BMI 37.3
--- NOTE | 2023-12-28 17:15 | P.PNAN_ITS ---
Anes - Eval Pre Procedure Procedure: Labor Epidural Date/Time: 12/28/23 17:15 Surgeon: Cesar Preop Diagnosis: Labor Pain Pre Op Diagnosis: IOL Patient Data Age: 33 Gender: F Height: Weight: Allergies Allergy/AdvReac Type Severity Reaction Status Date / Time No Known Allergies Allergy Verified 12/27/23 15:10 Home Medications Medication Instructions Recorded Confirmed Type Calcium with Vitamin D 600 cap PO DAILY 07/31/19 12/28/23 History vitamins-iron fumarate 27 1 tablet PO DAILY 07/31/19 12/28/23 History mg iron-folic acid 0.8 mg tablet ( Vitamin) aspirin 81 mg tablet,delayed 162 mg PO DAILY 07/12/23 12/28/23 History release labetalol 200 mg tablet 200 mg PO BID 08/02/23 12/28/23 History docusate sodium 100 mg capsule 100 mg PO BID PRN Constipation 12/28/23 12/28/23 History (Colace) Patient hx anesthesia problems: none Family hx anesthesia problems: none Results Review: All pre-operative results and documents have been reviewed as part of the pre- operative evaluation. 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 (normal spontaneous vaginal delivery) Surgical History Surgical History History of appendectomy as child [place] teeth removed Family History Family History Mother Pre-eclampsia Hypertension Other Kidney replaced by transplant maternal uncle Social History Social History Years smoked: 10 Smoking status: Former smoker Second hand tobacco smoke exposure: No Alcohol intake: never Substance use: never Substance use type: does not use Do You Feel Safe in your Home?: Yes Lack of Transportation: No Lack of Food: Never True Current Housing: I Have Housing Concerned About Future Housing: No Difficulty Paying Gas/Electric Bills: No Difficulty Paying for Meds: No Currently Unemployed: No Education: Bachelor's Degree Difficulty w/ Childcare or Family Care: No Living arrangements: with family Additional living arrangements comments: single Occupation/Education: occupation Additional occupation/education comments: [employer] Gender identity (if verbalized by the patient): Female Sexual Orientation (if Verbalized by the Patient): Straight or Heterosexual Spiritual care concerns: No Exam Day of Procedure 12/28/23 17:15 Patient weight: normal Heart: regular rate and rhythm Airway: Mallampati scale class II Neurological: alert and oriented
--- NOTE | 2023-12-28 17:19 | LDADM ---
This patient, Philly Bowie, was admitted to Labor/Delivery/Recovery 104 on 12/28/23 at 16:54. Plans for labor, pain management and were discussed with patient. Patient/family oriented to hospital policies and general routines including ID bracelet, bed and alarms, visiting hours, pain management, procedures, bathroom and other care routines, personal items, smoking policy, room service/diet and guest tray routines, security routines, and visiting hours. Patient/Family are encouraged to report perceived risks to care and to ask questions if they do not understand what they are told or what they should do. See OBIX for further documentation.
[2023-12-28 17:28] LABS: Basophils Percent Auto 0.3 % (0.2-1.2); Eosinophils Absolute Auto 0.1 K/mm3 (0-0.3); Eosinophils Percent Auto 0.9 % (0-4.4); Hematocrit 35.3 % (37.0-47.0); Hemoglobin 11.7 g/dL (12.0-15.0); Immature Granulocyte Absolute 0.07 K/mm3 (0.00-0.031); Immature Granulocyte Percent A 0.5 % (0-0.5); Lymphocytes Absolute Auto 3.13 K/mm3 (0.9-3.2); Lymphocytes Percent Auto 24.2 % (18.3-44.2); Mean Corpuscular HGB Conc 33.1 g/dl (32-36); Mean Corpuscular Hemoglobin 27.3 pg (26-34); Mean Corpuscular Volume 82.5 fl (80-100); Mean Platelet Volume 11.1 fl (7.4-10.4); Monocytes Absolute Auto 0.7 K/mm3 (0.1-0.6); Monocytes Percent Auto 5.2 % (2.6-8.5); Neutrophils Absolute Auto 8.9 K/mm3 (1.3-6.7); Neutrophils Percent Auto 68.9 % (45.5-73.1); Platelet Count Result 264 k/mm3 (150-375); Red Blood Count 4.28 M/mm3 (4.2-5.4); Red Cell Distribution Width 14.6 % (11.5-14.5); White Blood Count 12.9 K/mm3 (4.5-10.0)
--- NOTE | 2023-12-28 17:33 | PC.NURSE ---
1600--Dr. Freda Salinas at bedside.
[2023-12-28] MEDS: DINOPROSTONE 10 MG VAG INSERT VAGINAL (17:38)
[2023-12-28] MEDS: AMPICILLIN 2 GM/NS 100 ML 2 GM/100 ML BAG IVPB (17:57)
[2023-12-28] MEDS: LACTATED RINGERS 1,000 ML 125 ML IV CONT (17:58)
[2023-12-28 18:15] LABS: Rapid Plasma Reagin Non-Reactive (NonReactive)
[2023-12-28 18:19] LABS: HIV 1/2 Ab P24 Ag Result Negative (Negative)
[2023-12-28] MEDS: AMPICILLIN 1 GM/NS 50 ML 1 GM/50 ML BAG IVPB (21:34)
[2023-12-28] MEDS: LABETALOL HCL 100 MG TABLET 200 MG PO (21:35)
[2023-12-29] VITALS (197 sets, daily range): BP systolic 98–169; BP diastolic 54–105; PULSE 58–111; RESP 20; TEMP 36.5–37.1; O2SAT 93–100
[2023-12-29] MEDS: fentaNYL CITRATE INJ (*CRX) 100 MCG/2 ML VIAL IV PUSH ×3 (02:48→07:14)
[2023-12-29] MEDS: OXYTOCIN 30 UNITS/NS 500 ML 30 UNITS/500 ML BAG IV CONT (05:51)
[2023-12-29] MEDS: AMPICILLIN 1 GM/NS 50 ML 1 GM/50 ML BAG IVPB ×4 (06:14→17:49)
[2023-12-29] MEDS: LACTATED RINGERS 1,000 ML 125 ML IV CONT ×2 (08:25→13:07)
[2023-12-29] MEDS: ACETAMINOPHEN 500 MG TABLET 1000 MG PO (13:10)
--- NOTE | 2023-12-29 16:24 | PC.NURSE ---
see OBIX for blood pressures.
--- NOTE | 2023-12-29 17:14 | PC.NURSE ---
see OBIX for blood pressure readings.
--- NOTE | 2023-12-29 18:41 | WPDHPUPDATE1 ---
History and Physical Update Update Date/Time: 12/29/23 18:41 History and Physical has been reviewed, including an updated exam of the patient. There are NO changes in the patient's condition. Risks, benefits, and alternatives have been discussed and questions answered. Patient agrees to proceed with procedure.
--- NOTE | 2023-12-29 18:41 | WPDOBADMIT ---
Obstetrics - Admit Note Admission Note: record reviewed. No pertinent additions to the history and/or any subsequent changes in the physical findings that are not consistent with the expected course of the were found. Additions to the history and/or subsequent changes in the physical findings follow. None.
--- NOTE | 2023-12-29 18:42 | PM.OBPRVD ---
OB - Vaginal Delivery Note Procedure Delivery date: 12/29/23 Events: Chronic Hypertension Induction method: Per Cervidil Protocol Delivery augmentation: Rupture of Membranes and Pitocin Delivery monitor: External FHT and Internal Uterine Route of delivery: Episiotomy description: None Laceration Description: None Specimen: Yes Quantitative Blood Loss (ml): 300 Anesthesia type: Epidural Disposition: Floor Complications: No immediate complications Narrative: Patient prepped and draped usual manner for this procedure. Maternal expulsive efforts delivered vertex over intact perineum. Nuchal cord was noted, cut. Baby was then delivered without difficulty and placed on maternal abdomen. Placenta delivered spontaneously. Cervix vagina vulva were inspected with no lacerations or tears. Uterus well contracted no significant bleeding. At this point the procedure was considered terminated with immediate postoperative condition of mother and baby both excellent. Baby Gestational Age by Date: 38 gender: Female presentation: vertex position: Right Occiput Anterior Placenta delivery description: Spontaneous Cord Vessel Description: 3 Vessels, Nuchal Cord and Clamped/Cut
[2023-12-29] MEDS: OXYTOCIN 30 UNITS/NS 500 ML 30 UNITS/500 ML BAG 125 UNITS IV CONT (18:59)
[2023-12-29] MEDS: ACETAMINOPHEN 325 MG TABLET 650 MG PO (19:05)
[2023-12-29] MEDS: LABETALOL HCL INJ 100 MG/20 ML VIAL 20 MG IV PUSH (19:44)
[2023-12-29] MEDS: LABETALOL HCL 100 MG TABLET 200 MG PO (19:45)
--- NOTE | 2023-12-29 20:55 | OBPPTRN ---
Patient transferred to post room #290 via wheelchair. Support person present. Oriented to unit, room, information board, rooming in, admission packet and security measures. Patient verbalizes understanding.
[2023-12-30 03:34] VITALS: BP 137/81; PULSE 81; RESP 20; TEMP 36.4; O2SAT 100
[2023-12-30 03:34] LABS: Hematocrit 32.8 % (37.0-47.0); Hemoglobin 10.9 g/dL (12.0-15.0)
--- NOTE | 2023-12-30 07:16 | PM.OBPNVD ---
OB - PN: Subj Subjective Date/time seen: 12/30/23 07:16 Narrative: PPD#1 Philly reports doing well today. 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 Her pain is controlled. She is tolerating regular diet, voiding, passing gas, and ambulating without issues. She is breast feeding. OB - PN: Obj Data Labs 12/30/23 02:59 Labs: Laboratory Results - last 24 hr 12/30/23 02:59 Hgb 10.9 L Hct 32.8 L OB - PN A/P Assessment and Plan (1) Normal vaginal delivery: Code(s): O80 - Encounter for full-term uncomplicated delivery Status: Acute (2) Chronic hypertension: Code(s): I10 - Essential (primary) hypertension Status: Acute Plan day: 1 Plan: routine care Comments: - PO pain meds - Regular diet - Ambulation and hydration encouraged - Continue putting baby to breast q2-3hr Time Spent With Patient Time: Total time spent is greater than 50% in coordination of care (as documented) at patient's floor/unit and/or counseling patient: Review of Systems Constitutional: Constitutional: Denies chills, Denies fever(s) and Denies headache(s) Eyes: Eyes: Denies change in vision ENT: Denies dizziness and Denies headache(s) Cardiovascular: Cardiovascular: Denies chest pain, Denies palpitations and Denies dyspnea Respiratory: Respiratory: Denies cough and Denies dyspnea Gastrointestinal: Gastrointestinal: Denies nausea and Denies vomiting Neurologic: Denies dizziness and Denies headache(s) Endocrine: Endocrine: Denies palpitations Exam Const: General: cooperative, comfortable and no acute distress Orientation/consciousness: patient oriented x3 Resp: Effort & Inspection: normal respiratory effort Auscultation: clear to auscultation bilaterally Cardio: Rate: regular rate GI: Inspection: non-distended GI Palp: No abdominal tenderness and Yes Soft to palpation Auscultation: normal bowel sounds : Other: fundus firm Skin: General skin exam: normal color Neuro: General: patient oriented x3 Extrem: General: normal to inspection Psych: Appearance: grossly normal Affect: normal affect Attitude: cooperative
[2023-12-30 08:00] VITALS: BP 145/84; PULSE 74; RESP 16; TEMP 36.8; O2SAT 100
[2023-12-30] MEDS: MULTIVIT/MIN/PREN/FOL AC/IRON TABLET 1 TAB PO (08:21)
[2023-12-30] MEDS: IBUPROFEN 600 MG TABLET PO ×2 (08:32→22:20)
[2023-12-30] MEDS: LABETALOL HCL 100 MG TABLET 200 MG PO ×2 (08:32→22:20)
--- NOTE | 2023-12-30 10:52 | WPDANLDPN2 ---
Anes-Prog Note L&D Date/Time: 12/30/23 10:52 Comfortable throughout: labor and delivery Neuraxial method: epidural Epidural/Spinal procedure site: clean & non-tender Neuro status: Neuro function grossly intact. Cardiovascular status: normal Respiratory status: normal Airway patency: baseline Mental status: baseline Post-Op hydration status: normal Vital Signs: Last Vital Signs Temp 36.8 C 12/30/23 08:00 Pulse 74 12/30/23 08:00 Resp 16 12/30/23 08:00 BP 145/84 H 12/30/23 08:00 Pulse Ox 100 12/30/23 08:00 O2 Del Method Room Air 12/28/23 17:11 Pain score (VAS): 3/10 I/O: Intake & Output 12/29/23 12/30/23 12/30/23 23:59 07:59 15:59 Output Total 350 Balance -350 Post-procedural complaints: none Patient feedback: Patient satisfied with anesthetic care.
--- NOTE | 2023-12-30 12:15 | PC.NURSE ---
Consulted with patient to assess needs related to . Discussed with mother her successes, concerns and any questions she has. We reviewed working with the , supporting breast, protecting her nipples with an optimal deep latch, good positioning, and nipple care. Encouraged understanding the benefits of skin to skin, responding to feeding cues, frequencies of feeding 8-12 times in 24 hours (approximately 2-3 hours), duration of feedings, milk production, intake/output feeding sheet and signs of adequate intake encouraging swallowing at the breast. Reviewed positioning and alignment, supporting breast, off-centered (asymmetrical latch) and leading with the chin with big, open, wide gape. Infant latched optimally to the [right] breast in [cross cradle] position. Education given to the mother of how to visualize the suckling (with good rocking jaw motion) swallows (dropping of the lower jaw) and how to listen for drinking at the breast (the ka sound). The was [able/not able] to maintain latch without discomfort to mother. Mother is doing and excellent job and baby is eager and opens wide for a great latch. Resources used to facilitate learning were used from the [mom and baby guide]. Mother voiced understanding of the education shared, to call for assistance if the infant does not latch or if there is discomfort with . Reported to the Primary RN.
[2023-12-30 12:50] VITALS: BP 113/78; PULSE 68; RESP 16; TEMP 36.6; O2SAT 98
[2023-12-30 19:22] VITALS: BP 130/84; PULSE 81; RESP 18; TEMP 37; O2SAT 99
[2023-12-30 22:20] VITALS: PULSE 81
[2023-12-31 07:51] VITALS: BP 139/91; PULSE 66; RESP 16; TEMP 36.9; O2SAT 98
[2023-12-31 09:24] VITALS: PULSE 90
[2023-12-31] MEDS: MULTIVIT/MIN/PREN/FOL AC/IRON TABLET 1 TAB PO (09:24)
[2023-12-31] MEDS: CALCIUM/VITAMIN D 500 MG/5 MCG (200 I.U.) TABLET PO (09:24)
[2023-12-31] MEDS: LABETALOL HCL 100 MG TABLET 200 MG PO (09:24)
[2023-12-31] MEDS: DOCUSATE SODIUM 100 MG CAPSULE PO (09:24)
[2023-12-31] MEDS: IBUPROFEN 600 MG TABLET PO (09:26)
--- NOTE | 2023-12-31 09:35 | PM.OBDSVD ---
DS: Admitting Diagnosis Discharge Date 12/31/23 Admitting Diagnosis IOL CHTN DS: Discharge Diagnosis Discharge Diagnosis (1) Normal vaginal delivery: Code(s): O80 - Encounter for full-term uncomplicated delivery Status: Acute (2) Chronic hypertension: Code(s): I10 - Essential (primary) hypertension Status: Acute OB - DS: Summary OB Procedures : PIH Mgmt and Ultrasound OB Procedures Intrapartum: Spontaneous Vag Delivery OB Procedures: : None Peripartum Data Laceration Description: None Episiotomy description: None Status at Discharge Functional status at discharge: independent ambulation Overall status at discharge: patient is back to baseline Time Spent with Patient Time attestation: Total time spent providing and/or coordinating discharge services: Exam Const: General: cooperative, comfortable, no acute distress and obese Orientation/consciousness: patient oriented x3 Resp: Effort & Inspection: normal respiratory effort Auscultation: clear to auscultation bilaterally Cardio: Rate: regular rate GI: Inspection: non-distended GI Palp: No abdominal tenderness and Yes Soft to palpation Auscultation: normal bowel sounds : Other: fundus firm Skin: General skin exam: normal color Neuro: General: patient oriented x3 Extrem: General: normal to inspection Psych: Appearance: grossly normal Affect: normal affect Attitude: cooperative DS: Data Data Completed and Pending Pending studies at discharge: Pending at discharge 12/30/23 03:32 Surgical [PTH] Routine Labs on day of discharge: Labs from last 24 hours 12/30/23 02:59 Hgb 10.9 L Hct 32.8 L Discharge Plan Discharge Attending physician on discharge: Ally Chadwick Discharging Clinician: Ally Chadwick Anticipated Discharge Date/Time: 12/31/23 10:00 Patient Disposition: Home, Self-Care Activity: may shower and pelvic rest Diet: regular Patient Instructions: Antibiotic Form Stand Alone Forms: General Discharge Information Follow-up/Referrals: Carlos Guerrero MD [Physician] - 4 Weeks Discharge Medications: New acetaminophen 325 mg Tablet 650 mg PO Q6H PRN (Reason: Mild Pain (1-3) Or Headache) Qty: 90 0RF docusate sodium 100 mg Capsule 100 mg PO BID PRN (Reason: Constipation) Qty: 90 0RF ibuprofen 600 mg Tablet 600 mg PO Q6H PRN (Reason: Cramping) Qty: 40 0RF labetalol 100 mg Tablet 200 mg PO Q12HR 60 Days Qty: 240 0RF Continued labetalol 200 mg tablet 200 mg PO BID Vitamin 27 mg iron- 0.8 mg tablet 1 tablet PO DAILY Calcium with Vitamin D 600 cap PO DAILY docusate sodium [Colace] 100 mg Capsule 100 mg PO BID PRN (Reason: Constipation) Discontinued aspirin 81 mg tablet,delayed release (DR/EC) 162 mg PO DAILY Date of admission: 12/28/23 16:54 Primary Care Provider: PHYSICIAN,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
[2024-01-02 11:59] VITALS: BP 136/78; PULSE 71; RESP 20; TEMP 36.6; O2SAT 100
== END 2023-12-31 11:42 | disposition home or self-care (01) | DRG 560 ==
LOC: ANHOB2 12-31 10:11 → ANHLDR 01-02 08:10 → ANHOB2 01-02 08:10
PROVIDERS: Admitting Provider Obstetrics & Gynecology; Visit Provider Obstetrics & Gynecology
DX: O10.92 Unspecified pre-existing hypertension complicating childbirth (principal); O69.81X0 Labor and delivery complicated by cord around neck, without compression, not applicable or unspecified; Z3A.38 38 weeks gestation of pregnancy; Z37.0 Single live birth; Z23 Encounter for immunization
CPT/HCPCS: 36415; 85014; 85018; 85025; 86592; 86703; 86850; 86900; 86901; 88307; A9270; G0432; J0290; J2590; J2795; J3010; J7120

== ENCOUNTER 2024-01-13 13:13 | Outpatient (CLI) | payer OTHER, SELFPAY ==
[2024-01-13] VITALS (20 sets, daily range): BP systolic 125–137; BP diastolic 63–90; PULSE 52–144; O2SAT 96–100
[2024-01-13 13:57] LABS: Basophils Absolute Auto 0.1 K/mm3 (0.0-0.1); Basophils Percent Auto 0.6 % (0.2-1.2); Eosinophils Absolute Auto 0.3 K/mm3 (0-0.3); Eosinophils Percent Auto 3.2 % (0-4.4); Hematocrit 40.7 % (37.0-47.0); Hemoglobin 13.3 g/dL (12.0-15.0); Immature Granulocyte Absolute 0.03 K/mm3 (0.00-0.031); Immature Granulocyte Percent A 0.3 % (0-0.5); Lymphocytes Absolute Auto 3.23 K/mm3 (0.9-3.2); Lymphocytes Percent Auto 32.1 % (18.3-44.2); Mean Corpuscular HGB Conc 32.7 g/dl (32-36); Mean Corpuscular Hemoglobin 27.4 pg (26-34); Mean Corpuscular Volume 83.9 fl (80-100); Mean Platelet Volume 10.1 fl (7.4-10.4); Monocytes Absolute Auto 0.5 K/mm3 (0.1-0.6); Monocytes Percent Auto 4.5 % (2.6-8.5); Neutrophils Percent Auto 59.3 % (45.5-73.1); Platelet Count Result 309 k/mm3 (150-375); Red Blood Count 4.85 M/mm3 (4.2-5.4); Red Cell Distribution Width 14.5 % (11.5-14.5); White Blood Count 10.1 K/mm3 (4.5-10.0)
--- NOTE | 2024-01-13 14:06 | PC.NURSE ---
1320--Pt. presented with reports of elevated BP at home, h/a X3-4 days, and chest pain on and off since last p.m., she states that she notices it when she is nursing her baby. Pt. also reports wheezing at night that wakes her up , LCTA all payan.
[2024-01-13 14:15] LABS: Alanine Aminotransferase 19 U/L (6-35); Albumin Level 4.1 g/dL (3.5-5.1); Alkaline Phosphatase 76 U/L (38-126); Anion Gap 10 mmol/L (4-12); Aspartate Amino Transferase 20 U/L (14-36); Bilirubin,Total 0.3 mg/dL (0.2-1.3); Blood Urea Nitrogen 11 mg/dL (7-17); Calcium 9.2 mg/dL (8.4-10.2); Carbon Dioxide 24 mmol/L (22-30); Chloride 107 mmol/L (98-107); Estimated Glomerular Filt Rate > 60; Glucose 94 mg/dL (65-110); Potassium 4.2 mmol/L (3.4-5.0); Sodium 141 mmol/L (137-145); Uric Acid 6.4 mg/dL (2.5-7.5)
--- NOTE | 2024-01-13 14:27 | PC.NURSE ---
Report to Dr. Guerrero re: pt's reports of h/a, chest pain and Hx, assessment findings, v.s., and lab results. Orders to [facility] home.
== END 2024-01-13 14:41 ==
LOC: ANHOBOP 13:22 → ANHOBPP 13:23
PROVIDERS: Visit Provider Obstetrics & Gynecology
DX: O13.9 Gestational [pregnancy-induced] hypertension without significant proteinuria, unspecified trimester (principal)
CPT/HCPCS: 36415; 80053; 84550; 85025